=== PATIENT | female | born 1995 | race Caucasian/White ===

== ENCOUNTER 2023-02-22 15:57 | Inpatient (IN) | payer OTHER ==
[2023-02-22] MEDS ORDERED: Ondansetron PF 4 MG/2 ML Vial IVP PRN (15:58)
[2023-02-22] MEDS ORDERED: Docusate 100 MG CAP PO PRN (15:58)
[2023-02-22] MEDS ORDERED: Ibuprofen 800 MG TAB PO PRN (15:58)
[2023-02-22] MEDS ORDERED: hydrALAZINE 20 MG/ML VIAL SLOW IVP PRN (15:58)
[2023-02-22] MEDS ORDERED: Promethazine HCl 25 MG/ML VIAL IM PRN (15:58)
[2023-02-22] MEDS ORDERED: Butorphanol Tartrate 1 MG/ML VIAL SLOW IVP PRN (15:58)
[2023-02-22] MEDS ORDERED: Carboprost 250 MCG/ML AMP IM PRN (15:58)
[2023-02-22] MEDS ORDERED: HYDROcodone/Acetaminophen 5/325 mg Tablet PO PRN ×2 (15:58)
[2023-02-22] MEDS ORDERED: Zolpidem Tartrate 5 MG TAB PO PRN (15:58)
[2023-02-22] MEDS ORDERED: Lidocaine 1% (PF) 30 ML VIAL SC PRN (15:58)
[2023-02-22] MEDS ORDERED: Diphenoxylate HCl/Atropine Tablet PO PRN ×2 (15:58)
[2023-02-22] MEDS ORDERED: Acetaminophen 500 MG TAB PO PRN (15:58)
[2023-02-22] MEDS ORDERED: Misoprostol 100 MCG TAB VAG SCH (16:00)
[2023-02-22] MEDS ORDERED: NS w/ Oxytocin 30 units 500 ML IV SCH ×3 (16:00)
[2023-02-22] MEDS ORDERED: Lactated Ringer's 1,000 ML IV SCH (16:00)
[2023-02-22 17:09] VITALS: BMI 39.4
[2023-02-22 17:48] LABS: Hemoglobin 11.5 g/dL (12.0-15.5); Mean Corpuscular HGB CONC 32.5 g/dL (32.0-36.0); Mean Corpuscular Hemoglobin 26.6 pg (27.0-33.0); Mean Corpuscular Volume 81.8 fl (81.6-98.3); Mean Platelet Volume 11.1 fl (7.4-10.4); Platelet Count 352 10x3/uL (150-450); RBC Distribution Width 14.6 % (11.5-14.5); Red Blood Cell (RBC) Count 4.33 10x6/uL (3.90-5.03); White Blood Cell (WBC) Count 8.6 10x3/uL (3.5-10.5)
[2023-02-22 18:09] LABS: HBSAg Index 0.15 S/CO (0-0.99); HIV (1/2) Antibody/Antigen Non-Reactive (NonReactive); HIV 1/2 INDEX 0.07 S/CO (<1.00); Hep B Surf Ag - L&D Non-Reactive S/CO (NonReactive)
[2023-02-22 18:10] LABS: Syphilis Antibody Nonreactive (Nonreactive); Syphilis Antibody Index 0.02 S/CO (<1.00 Non-Reactive)
[2023-02-22] MEDS ORDERED: Fentanyl 2 mcg/Bup 0.1% Cadd 100 ML ONE (23:59)
[2023-02-23] MEDS ORDERED: Promethazine HCl 25 MG/ML VIAL IM PRN (00:37)
[2023-02-23] MEDS ORDERED: Acetaminophen 325 MG TAB PO PRN (00:37)
[2023-02-23] MEDS ORDERED: Naloxone HCl 0.4 mg/ml Vial IVP PRN ×2 (00:37)
[2023-02-23] MEDS ORDERED: Ondansetron PF 4 MG/2 ML Vial IVP PRN ×2 (00:37→11:05)
[2023-02-23] MEDS ORDERED: Lactated Ringer's 500 ML IV PRN (00:37)
[2023-02-23] MEDS ORDERED: Moisturizing Cream (Eucerin) 113 GM JAR TOP PRN (00:37)
[2023-02-23] MEDS ORDERED: ePHEDrine Sulfate 50 MG/10 ML VIAL SLOW IVP PRN (00:37)
[2023-02-23] MEDS ORDERED: diphenhydrAMINE 50 MG/ML VIAL IVP PRN (00:37)
[2023-02-23] MEDS ORDERED: Fentanyl 2 mcg/Bupivacaine 0.1% Cassette 100 ML EPIDURAL SCH (00:45)
[2023-02-23] MEDS ORDERED: Communication Order-Pharmacy FS SCH (00:45)
[2023-02-23] MEDS ORDERED: Misoprostol 200 MCG TAB VAG PRN (11:05)
[2023-02-23] MEDS ORDERED: Benzocaine-Menthol 82.5 ML CAN TOP PRN (11:05)
[2023-02-23] MEDS ORDERED: diphenhydrAMINE 25 MG CAP PO PRN (11:05)
[2023-02-23] MEDS ORDERED: Zolpidem Tartrate 5 MG TAB PO PRN (11:05)
[2023-02-23] MEDS ORDERED: Preparation H Ointment 28 GM TUBE PR PRN (11:05)
[2023-02-23] MEDS ORDERED: Boostrix 0.5 ML (Tdap) VIAL (>/=7 yrs of age) IM ONE (11:05)
[2023-02-23] MEDS ORDERED: Bisacodyl 10 MG SUPP PR PRN (11:05)
[2023-02-23] MEDS ORDERED: Milk Of Magnesia 30 ML UDCUP PO PRN (11:05)
[2023-02-23] MEDS ORDERED: hydrALAZINE 20 MG/ML VIAL SLOW IVP PRN (11:05)
[2023-02-23] MEDS ORDERED: HYDROcodone/Acetaminophen 5/325 mg Tablet PO PRN ×2 (11:05)
[2023-02-23] MEDS ORDERED: Lanolin Ointment 7 GM TUBE TOP PRN (11:05)
[2023-02-23] MEDS ORDERED: NS w/ Oxytocin 30 units 500 ML IV SCH (11:15)
[2023-02-23] MEDS: Ibuprofen 800 MG TAB PO SCH ×2 (15:04→21:35)
[2023-02-23] MEDS: Ferrous Sulfate 325 MG TAB PO SCH (19:14)
[2023-02-23] MEDS: Docusate 100 MG CAP PO SCH (21:35)
[2023-02-24 04:00] LABS: Mean Corpuscular HGB CONC 32.2 g/dL (32.0-36.0); Mean Corpuscular Hemoglobin 26.7 pg (27.0-33.0); Mean Corpuscular Volume 83.2 fl (81.6-98.3); Mean Platelet Volume 11.4 fl (7.4-10.4); Platelet Count 296 10x3/uL (150-450); RBC Distribution Width 14.7 % (11.5-14.5); Red Blood Cell (RBC) Count 3.74 10x6/uL (3.90-5.03); White Blood Cell (WBC) Count 10.9 10x3/uL (3.5-10.5)
[2023-02-24] MEDS: Ibuprofen 800 MG TAB PO SCH (06:10)
[2023-02-24 08:33] VITALS: BP 145/96; TEMP 98
[2023-02-24] MEDS ORDERED: Prenatal Vitamin 1 TAB PO SCH (09:00)
[2023-02-24] MEDS: Ferrous Sulfate 325 MG TAB PO SCH (09:05)
[2023-02-24] MEDS: Docusate 100 MG CAP PO SCH (09:06)
== END 2023-02-24 14:15 | disposition home or self-care (01) | DRG 806 ==
LOC: CSHLD 15:57 → CSHPP 02-23 14:10 → CSHPED 02-23 14:15
PROVIDERS: ADMIT Obstetrics & Gynecology; ATTEND Obstetrics & Gynecology
PROC: 10E0XZZ Delivery of Products of Conception, External Approach (ICD-10-PCS; principal; 2023-02-23)
PROC: 0HQ9XZZ Repair Perineum Skin, External Approach (ICD-10-PCS; 2023-02-23)
PROC: 10907ZC Drainage of Amniotic Fluid, Therapeutic from Products of Conception, Via Natural or Artificial Opening (ICD-10-PCS; 2023-02-23)
DX: O41.03X0 Oligohydramnios, third trimester, not applicable or unspecified (principal); O99.354 Diseases of the nervous system complicating childbirth; Z37.0 Single live birth; G43.909 Migraine, unspecified, not intractable, without status migrainosus; O70.0 First degree perineal laceration during delivery; Z3A.38 38 weeks gestation of pregnancy; Z88.8 Allergy status to other drugs, medicaments and biological substances; Z79.899 Other long term (current) drug therapy
CPT/HCPCS: 36415; 51702; 85027; 86780; 86850; 86900; 86901; 87340; 87389; 88307; 99285; J2590